=== PATIENT | female | born 1965 | race Caucasian/White ===

== ENCOUNTER 2018-06-12 10:35 | Day surgery (SDC) | payer BC ==
[2018-06-11 12:38] LABS: HEMATOCRIT 43.5 % (36.0-48.0); HEMOGLOBIN 14.8 g/dL (12-16); MCH 32.3 pg (26.0-34.0); MEAN PLATELET VOLUME 9.5 fL (7.4-10.4); RBC 4.58 10x6/uL (4.00-5.40); RDW 14.1 % (11.5-14.5)
[~2018-06-12] VITALS: Ht 160 cm; Wt 96.2 kg
[~2018-06-12 10:35] MED LIST: NORCO 7.5/325 T1 TA1 PO
[2018-06-12 11:48] VITALS: Ht 160 cm; Wt 96.2 kg
== END 2018-06-12 19:50 | disposition home or self-care (01) ==
LOC: D.OPS 10:35 → D.PAN 12:45 → D.OPS 19:50
PROVIDERS: Anesthesiology
DX: S52.501A Unspecified fracture of the lower end of right radius, initial encounter for closed fracture (principal); Z01.812 Encounter for preprocedural laboratory examination; X58.XXXA Exposure to other specified factors, initial encounter